=== PATIENT | female | born 1975 | race Caucasian/White ===

== ENCOUNTER 2025-05-28 10:35 | Emergency (ER) | payer OTHER, SELFPAY ==
--- OUTSIDE RECORDS SUMMARY | 2025-05-28 10:37 | XMS_ITS | Clinical Summary ---
Author Organization [facility] Address [address] [place] [id number] Care Team Providers Care Executor Of Estate Name Role Phone Kinjal Justice MD Primary Care Provider Allergies Active Allergy Reactions Criticality Noted Date Comments Penicillins Hives 04/27/2005 Tolerates cefazolin, cefdinir, cephalexin Medications b complex vitamins (VITAMIN B COMPLEX) capsule Take 1 capsule by mouth once daily. Active Magnesium Glycinate 100 mg tab Take by mouth. 0 01/08/20 20 Active levothyroxine (SYNTHROID) 88 mcg tabletIndications: Other specified hypothyroidism TAKE 1 TABLET(88 MCG) BY MOUTH EVERY DAY 30 Tablet 03/16/20 24 Active polyethylene glycol-electrolyte 236-22.74-6.74 -5.86 gram suspensionIndicati ons:Encounter for screening colonoscopy Drink 2 liters (half the bottle) the day before colonoscopy and 2 liters (remaining prep) 6 hours prior to colonoscopy appointment. 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 Resolved Problems Problem Noted Date Diagnosed Date Resolved Date Supervision of other normal 04/08/2009 02/23/2011 Elderly multigravida with an tepartum condition or complication 04/08/2009 02/23/2011 Normal delivery 08/19/2008 02/23/2011 Transient hypertension of pr egnancy, antepartum 08/18/2008 02/23/2011 Supervision of normal first 01/24/2008 02/23/2011 Encounters Date Type Department Care Team Description 03/06/2025 Telephone [facility] [address] [place] [address] Uriah Valera MD Appointment Reminder (Colonoscopy on 03/12/2025 at [facility]) from Last 3 Months Immunizations Immunization Administration Dates Next Due Influenza A (H1N1), Inactivated 09/23/2009 Influenza, IIV3 (Age 6-35 mos) 09/14/2011 Influenza, IIV3 (Age >=3 years) 09/14/2011,08/2609/14/2012 Tdap 09/14/2011 09/14/2021 Family History Medical History Relation Name Comments Good Health Brother 1 Emerson Good Health Brother 2 [place] Good Health Daughter Di 09' Diabetes Father Heart block Father 4V CABG Hypertension Father No Known Problems Maternal Grandfather Diabetes Maternal Grandmother Heart Disease Maternal Grandmother [place] Arthritis Mother alive, ca of ly mph nodes, dm, htn, [place] age 58, thyroid Diabetes Mother Heart Disease Mother [place], Double byp ass Hypertension Mother No Known Problems Paternal Grandfather No Known Problems Paternal Grandmother Good Health Son Jacob 08' Cancer-breast No Family History Relation Name Status Comments Brother 1 [place] Alive X2 Brother 2 [place] Daughter Di 09' Alive Father Alive Maternal Grandfather Maternal Grandmother Mother Alive Paternal Grandfather Paternal Grandmother Son Jacob 08' Alive Social History Tobacco Use Types Packs/Day Years Used Date Smoking Tobacco: Never Smokeless Tobacco: Never Tobacco Cessation:Counseling Given: Yes Comments:No exp at home Alcohol Use Standard Drinks/Week Comments Yes 0 (1 standard drink = 0.6 oz pure alcohol) Alcoholic Drinks/2-3 drinks - couple of times per month when not preg. 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 4th degree tear. Mild PIH at 28 wks. No other complications. Baby born healthy. Wt gain of 45#. 2008 Term F C-Sec tion Livin g Di Sims on Delivery Location:[facility] Last Filed Vital Signs Vital Sign Reading Time Taken Comments Blood Pressure 132/92 11/19/2023 2:35 PM MOBILE LOUNGE DRIVER OR OPERATOR Pulse 63 11/19/2023 2:35 PM MOBILE LOUNGE DRIVER OR OPERATOR Temperature 37 C (98.6 F) 07/22/2022 8:31 AM CDT Respiratory Rate 16 10/22/2020 4:40 PM MOBILE LOUNGE DRIVER OR OPERATOR Oxygen Saturation 98% 11/19/2023 2:35 PM MOBILE LOUNGE DRIVER OR OPERATOR Inhaled Oxygen Concentration - - Weight 83.9 kg (184 lb 14.4 oz) 11/19/2023 2:35 PM MOBILE LOUNGE DRIVER OR OPERATOR Height 167.6 cm (5' 6) 11/19/2023 2:35 PM MOBILE LOUNGE DRIVER OR OPERATOR Body Mass Index 29.84 11/19/2023 2:35 PM MOBILE LOUNGE DRIVER OR OPERATOR Plan of Treatment Scheduled Procedures Name Priority Associated Diagnoses Date/Ti me SURGICAL PROCEDURE (TYPE PROCEDURE DESCRIPTION BELOW) Encounter for screening colonoscopy Health Maintenance Due Date Last Done Comments Hepatitis C screening for ag e 18-79 1992 Hepatitis B series for 19+ ( 1 of 3 - 19+ 3-dose series) 1993 Tetanus booster 09/14/2021 09/14/2011 Depression screening for age 12+ 09/05/2022 09/05/2021, 01/09/2020, 01/08/2020, Additional history exists Mammogram for age 45-75 10/09/2023 10/09/20 22, 09/03/2020, 09/29/2016 Pneumococcal series for age 50+ (1 of 1 - PCV) 2024 Zoster (shingles) series for age 50+ (1 of 2) 2024 COVID-19 vaccine series (2023- season) 2024 BMI (ht and wt on same day) for age 18+ 11/19/2024 11/19/2023, 08/14/2022, 07/22/2022, Additional history exists Colonoscopy through age 75 01/22/202501/22, 01/23/2020, 01/23/2020 Influenza Vaccine (#1) 2025 1, 09/14/2011, 08/26/2009 Lipids for age 45-75 07/22/2027 07/22/2022, 11/05/2016, 03/18/2007, Additional history exists HIV for age 15-65 Completed 04/08/2009, 02/02/2008 Procedures Procedure Name Priority Date/Time Associated Diagnosis Comments XR MAMMO BILAT SCREENING Routine 10/09/2022 10:32 AM MOBILE LOUNGE DRIVER OR OPERATOR Visit for screening mammogram LIPID PANEL W REFLEX MEASURED LDL Routine 07/22/2022 9:16 AM CDT Family history of ASCVD COLONOSCOPY 01/23/2020 9:12 AM MOBILE LOUNGE DRIVER OR OPERATOR ANTI HIV 1/2 Routine 04/08/2009 1:13 PM CDT Supervision of Other Normal (HC) from Last 3 Months or Most Recently Relevant to Health Maintenance Results * XR MAMMO BILAT SCREENING (10/09/2022 10:32 AM MOBILE LOUNGE DRIVER OR OPERATOR) Anatomical Region Laterality Modality BREASTS, Breast Left, Breast Right Bilateral Mammography Impressions 10/09/2022 3:51 PM MOBILE LOUNGE DRIVER OR OPERATOR There is no radiographic evidence for malignancy. Recommend annual mammograms. MAMMOGRAM ASSESSMENT: ACR 1 Negative PATIENTS: You will also receive a letter with your examination results in an easy to read format. If you have questions about your results, please contact your referring provider. Narrative 10/09/2022 3:51 PM MOBILE LOUNGE DRIVER OR OPERATOR For Patients: As a result of the Century Cures Act, medical imaging exams and procedure reports are released immediately into your electronic medical record. You may view this report before your referring provider. If you have questions, please contact your health care provider. XR MAMMO BILAT SCREENING [[id number]] CLINICAL HISTORY: This is an asymptomatic 47 y.o. patient. INDICATION FOR EXAM: Mammogram Screening. TECHNIQUE: CC & MLO views were obtained. This study was evaluated with the assistance of Computer-Aided Detection. COMPARISON FILM: Yes 09/03/20 [employer] FINDINGS: The breasts are heterogeneously dense, which may obscure small masses. There are no dominant masses, suspicious micro calcifications or areas of architectural distortion. us Kinjal Justice MD MAMMO Final Resul t * (ABNORMAL) LIPID PANEL W REFLEX MEASURED LDL (07/22/2022 9:16 AM CDT) CHOLESTEROL,TOTAL 224(H) 100 - 199 mg/dL 07/22/2022 5:07 PM CDT [facility] TRIGLYCERIDES 180(H) <150 mg/dL 07/22/2022 5:07 PM CDT [facility] HDL CHOLESTEROL 49 >40 mg/dL 5:07 PM CDT [facility] NON-HDL CHOLESTEROL 175(H) <145 mg/dl 07/22/2022 5:07 PM CDT [facility] CHOL/HDL RATIO 4.57(H) <4.50 07/22/2022 5:07 PM CDT [facility] LDL CHOLESTEROL 139(H) <=130 mg/dL 07/22/2022 5:07 PM CDT [facility] VLDL CHOLESTEROL 36(H) <=30 mg/dL 07/22/2022 5:07 PM CDT [facility] TRA [facility]ORAT[facility] PROVIDER ORDERED STATUS RANDOM 07/22/2022 5:07 PM CDT [facility] Blood BLOOD SPECIMEN / Unknown Venipuncture / Unknown 07/22/2022 9:16 AM CDT 07/22/2022 9:17 AM CDT us Kinjal Justice MD CHEMISTRY Final Resul t [facility] [address] [place] [address], [place] * COLONOSCOPY (01/23/2020 9:12 AM MOBILE LOUNGE DRIVER OR OPERATOR) 01/23/2020 9:12 AM MOBILE LOUNGE DRIVER OR OPERATOR Narrative Transcriptions Uriah Valera MD - 01/23/2020 9:54 AM CST Patient Name: Arti Barros Procedure Date: 01/23/2020 Gender: Female Date of : 1975 Admit Type: Outpatient Procedure: Colonoscopy Proceduralist: Uriah Valera MD , Charlotte Soto (Nurse) Indications/Pre-Op Diagnosis: Clinically significant diarrhea ofunexplained origin, This is the patient's firstcolonoscopy Medications: Fentanyl 100 micrograms IV, Midazolam 4 mgIV, The level of sedation administered wasmoderate Procedure Description: The patient had risks, benefits and alternatives explained to andgave informed consent. The patient had a stable cardiopulmonary status and judged an adequate candidate for conscious sedation. The [id number] was passed through the anus and advanced tothe terminal ileum. The colonoscopy was performed without difficulty. The patient tolerated the procedure well. The quality of the bowel preparation was good. The ileocecal valve, appendiceal orifice, and rectum were photographed. The terminal ileum, ileocecal valve, appendiceal orifice, and rectum were photographed. Complications: No immediate complications. Estimated Blood Loss & Specimen: Estimated blood loss: none. Specimen collected - Yes and sent to Laboratory Findings: The perianal and digital rectal examinations were normal. Two sessile polyps were found in the cecum. The polyps were 3 mm in size. These polyps were removed with a cold snare. Resection and retrieval were complete. The terminal ileum appeared normal. The exam was otherwise without abnormality on direct and retroflexion views. Biopsies for histology were taken with a cold forceps from the entire colon for evaluation of microscopic colitis. Impressions/Post-Op Diagnosis: - Two 3 mm polyps in the cecum, removed with a cold snare. Resectedand retrieved. - The examined portion of the ileum was normal. - The examination was otherwise normal on direct and retroflexionviews. - Biopsies were taken with a cold forceps from the entire colon for evaluation of microscopic colitis. Recommendation: - Patient has a contact number available for emergencies. The signsand symptoms of potential delayed complications were discussed with the patient. Return to normal activities tomorrow. Written discharge instructions were provided to the patient. - Resume previous diet. - Continue present medications. - Await pathology results. - Repeat colonoscopy is recommended. The colonoscopy date will be determined after pathology results from today's exam become available for review. Moderate Sedation: Moderate (conscious) sedation was administered by the endoscopy nurse and supervised by the endoscopist. The following parameters were monitored: oxygen saturation, heart rate, respiratory rate, blood pressure, adequacy of pulmonary ventilation and reponse to care. [facility] and nursing notes for moderate sedation details. Total physician intraservice time was 22 minutes. Uriah Valera MD 01/23/2020 9:54:35 AM This report has been signed electronically. Note Initiated On: 01/23/2020 9:12 AM Procedure Code(s): --- Professional --- 13130, Colonoscopy, flexible; with removalof tumor(s), polyp(s), or other lesion(s) bysnare technique 99437, 59, Colonoscopy, flexible; withbiopsy, single or multiple Diagnosis Code(s): --- Professional --- D12.0, Benign neoplasm of cecum R19.7, Diarrhea, unspecified CPT copyright 2018 [employer]. All rights reserved. The codes documented in this report are preliminary and upon supervisor network control operators reviewmay be revised to meet current compliance requirements. Scope In: 9:21:01 AM Scope Withdrawal Time 0 hours 11 minutes 0 seconds Scope Out: 9:40:37 AM us Uriah Valera MD PROCEDURE ORD Final Res ult * ANTI HIV 1/2 (04/08/2009 1:13 PM CDT) ANTI HIV 1/2 Non-reacti ve [facility] Blood specimen (specimen) BLOOD SPECIMEN / Unknown 04/08/2009 1:13 PM CDT 04/08/2009 1:12 PM CDT us Alessio Coleman MD SEND OUTS Final Re sult [facility] [place]NAL ZIP [address] [address] from Last 3 Months or Most Recently Relevant to Health Maintenance Insurance [facility] [employer] Advance Directives * Full Code (Latest Code Status on File) Date Activated Date Inactivated Comments 10/22/2020 10:36 AM 10/22/2020 7:15 PM Question Answer Comments Code Status Discussion: Per Existing OrderDiscus sed * Full Code Date Activated Date Inactivated Comments 04/17/2017 12:22 AM 04/18/2017 12:08 PM * Full Code Date Activated Date Inactivated Comments 04/06/2017 10:45 AM 04/06/2017 4:47 PM * Full Code Date Activated Date Inactivated Comments 03/26/2016 11:40 AM 03/26/2016 5:31 PM * Full Code Date Activated Date Inactivated Comments 11/21/2012 10:09 AM 11/21/2012 2:13 PM Care Teams Executor Of Estate Relationship Specialty Start Date End Date Kinjal Justice MD [address] [place] [address] PCP - General Family Practice 07/22/22
--- OUTSIDE RECORDS SUMMARY | 2025-05-28 10:37 | XMS_ITS | Patient Health Record ---
Author Organization [facility] Al Address [address] [place] [address] Care Team Providers Care Sample Book Maker Name Role Phone DANIELLE TEE Unavailable [phone] ANGELAQUINCY Unavailable [phone] Allergies Allergen (clinical drug ingredient) Drug/Non Drug Allergy documented on EMR Reaction Allergy Type Onset Date Status Penicillin Unknown Drug Allergy Active Results Component Value Reference Range Notes THYROID PEROXIDASE ANTIBODIE S (5081) (Not yet reviewed by provider) Interpretation: Performing Lab:TIFFANIE, [facility] [facility] [address], FARR TechnologiesXjesTX[address] Armando Luna Notes/Report: 0 0 0 0 0 0 0 0 0 0 THYROID PEROXIDASE ANTIBODIES 673 <9 IU/mL T4, FREE (866) (Not yet revi ewed by provider) Interpretation: Performing Lab:TIFFANIE, Semadic [address], FARR TechnologiesNmgnCP[address] Armando Luna Notes/Report: 0 0 0 0 0 0 0 0 0 0 T4, FREE 1.1 0.8-1.8 ng/dL TSH (899) (Not yet reviewed by provider) Interpretation: Performing Lab:TIFFANIE, Semadic [address], FARR TechnologiesZobfVG[address] Armando Luna Notes/Report: 0 0 0 0 0 0 0 0 0 0 TSH 3.81 Reference Range > or = 20 Years 0.40-4.50 Ranges First trimester 0.26-2.66 Second trimester 0.55-2.73 Third trimester 0.43-2.91 T3, FREE (90698) (Not yet re viewed by provider) Interpretation: Performing Lab:TIFFANIE, [facility] [address], [facility] RapidsXnvuVE[address] Armando Luna Notes/Report: 0 0 0 0 0 0 0 0 0 0 T3, FREE 3.9 2.3-4.2 pg/mL TESTOSTERONE, FREE (DIALYSIS ) AND TOTAL,MS (38807) (Not yet reviewed by provider) Interpretation: Performing Lab:Kaylin3Micaela, MedFusion-[address] [address], [address]-Nervine AsylumMzybujztfaUM[address] New Martinez MD,PhD Notes/Report: 0 0 0 0 0 0 0 0 0 0 TESTOSTERONE, TOTAL, MS 9 2-45 ng/dL For additional information, please refer to https://education.Kyruus/faq/QRP737 (This link is being provided for informational/educational purposes only.) (Note) This test was developed and its analytical performance characteristics have been determined by [facility]. It has not been cleared or approved by the FDA. This assay has been validated pursuant to the CLIA regulations and is used for clinical purposes. TESTOSTERONE, FREE 1.8 0.1-6.4 pg/mL (Note) This test was developed and its analytical performance characteristics have been determined by [facility]. It has not been cleared or approved by the FDA. This assay has been validated pursuant to the CLIA regulations and is used for clinical purposes. [facility] med fusion [address] [address],[address] [facility] [address] New Martinez MD, PhD NO COLLECTION DATE RECEIVED. WE HAVE USED THE DATE THE SPECIMEN WAS RECEIVED BY THIS LABORATORY THE COLLECTION DATE. IF THIS IS INCORRECT, PLEASE CONTACT CLIENT SERVICES. PHONE NUMBER: [phone] CORTISOL, TOTAL (367) (Not y et reviewed by provider) Interpretation: Performing Lab:TIFFANIE [facility] [facility] [address], [facility] RapidsTxcyOP[address] Armando Luna Notes/Report: 0 0 0 0 0 0 0 0 0 0 CORTISOL, TOTAL 5.4 Reference Range: For 8 a.m.(7-9 a.m.) Specimen: 4.0-22.0 Reference Range: For 4 p.m.(3-5 p.m.) Specimen: 3.0-17.0 * Please interpret above results accordingly * DHEA SULFATE (402) (Not yet reviewed by provider) Interpretation: Performing Lab:TIFFANIE Familio-FARR Technologiese[address] [facility], BizmoreKsowMT[address] Armando Luna Notes/Report: 0 0 0 0 0 0 0 0 0 0 DHEA SULFATE 127 15-205 mcg/dL PROGESTERONE (745) (Not yet reviewed by provider) Interpretation: Performing Lab:TIFFANIE Familio-FARR Technologiese[address] [employer], BizmoreXejxZH[address] Armando Luna Notes/Report: 0 0 0 0 0 0 0 0 0 0 PROGESTERONE 5.7 Reference Ranges Female Follicular Phase < 1.0 Luteal Phase 2.6-21.5 Post menopausal < 0.5 1st Trimester 4.1-34.0 2nd Trimester 24.0-76.0 3rd Trimester 52.0-302.0 ESTRADIOL (4021) (Not yet re viewed by provider) Interpretation: Performing Lab:TIFFANIE Familio-FARR Technologiese[address] [facility], BizmoreEghiID[address] Armando Luna Notes/Report: 0 0 0 0 0 0 0 0 0 0 ESTRADIOL 20 Reference Range Follicular Phase: 19-144 Mid-Cycle: 64-357 Luteal Phase: 56-214 Postmenopausal: < or = 31 Reference range established on post-pubertal patient population. No pre-pubertal reference range established using this assay. For any patients for whom low Estradiol levels are anticipated (e.g. males, pre-pubertal children and hypogonadal/post-menopausal females), the Familio [facility] Estradiol, Ultrasensitive, LCMSMS assay is recommended (order code 49583). Please note: patients being treated with the drug fulvestrant (Faslodex(R)) have demonstrated significant interference in immunoassay methods for estradiol measurement. The cross reactivity could lead to falsely elevated estradiol test results leading to an inappropriate clinical assessment of estrogen status. Fam[facility] order code [id number], Ultrasensitive LC/MS/MS demonstrates negligible cross reactivity with fulvestrant. LIPID PANEL, STANDARD (7600) (Not yet reviewed by provider) Interpretation: Performing Lab:TIFFANIE Familio-FARR Technologiese[address], BizmoreSzbwWL[address] Armando Pride Jeremy Notes/Report: 0 0 0 0 0 0 0 0 0 0 CHOLESTEROL, TOTAL 249 <200 mg/dL HDL CHOLESTEROL 53 > OR = 50 mg/dL TRIGLYCERIDES 214 <150 mg/dL If a non-fasting specimen was collected, consider repeat triglyceride testing on a fasting specimen if clinically indicated. Ze et al. J. of Clin. Lipidol. 2015;9:129-169. LDL-CHOLESTEROL 158 Reference range: <100 Desirable range <100 mg/dL for primary prevention; <70 mg/dL for patients with CHD or diabetic patients with > or = 2 CHD risk factors. LDL-C is now calculated using the Uriah-Perez calculation, which is a validated novel method providing better accuracy than the Friedewald equation in the estimation of LDL-C. Uriah SS et al. JAY. 2013;310(19): 6060-4381 (http://education.Civolution/faq/RYV132) CHOL/HDLC RATIO 4.7 <5.0 (calc) NON HDL CHOLESTEROL 196 <130 mg/dL (calc) For patients with diabetes plus 1 major ASCVD risk factor, treating to a non-HDL-C goal of <100 mg/dL (LDL-C of <70 mg/dL) is considered a therapeutic option. RADHA ALBICANS AB (IGG,IGA ,IGM) (48260) Reviewed date:07/26/2024 04:10:50 PM Interpretation: Performing Lab:EZ, [facility],[address] [facility] HealthcareCA[address] Virginia Brewster MD,PhD,KARIN Notes/Report: FASTING: UNKNOWN FASTING:UNKNOWN C.ALBICANS IGG 0.6 C.ALBICANS IGA 0.3 C.ALBICANS IGM 0.4 REFERENCE RANGE: <1.0 INTERPRETIVE CRITERIA: <1.0 Antibody Not Detected > or = 1.0 Antibody Detected Systemic candidiasis is often characterized by markedly elevated levels of IgG, IgA, and IgM recognizing Radha. However, interpretation of Radha antibody results is complicated by antibody detection in approximately 40% of healthy individuals and up to 70% of patients positive for other fungal antibodies. Further, antibody responses may be blunted in immunocompromised patients at risk for systemic candidiasis. Radha antibody levels should be considered within the context of clinical findings and results from other relevant laboratory tests, such as Radha antigen detection and/or culture. This test was developed and its analytical performance characteristics have been determined by [facility]. It has not been cleared or approved by FDA. This assay has been validated pursuant to the CLIA regulations and is used for clinical purposes. TESTOSTERONE, TOTAL, MS (159 83) Reviewed date:07/24/2024 03:31:58 PM Interpretation: Performing Lab:Z3Micaela, MedFusion-[address]wt[address] [address], [address], UnukvdaqkdCA[address] New Martinez MD,PhD Notes/Report: FASTING:UNKNOWN FASTING: UNKNOWN TESTOSTERONE, TOTAL, MS 10 2-45 ng/dL For additional information, please refer to https://education.Kyruus/faq/TotalTestoste roneLCMSMS (This link is being provided for informational/educational purposes only.) (Note) This test was developed and its analytical performance characteristics have been determined by [facility]. It has not been cleared or approved by the FDA. This assay has been validated pursuant to the CLIA regulations and is used for clinical purposes. MD med fusion [address] [address],[address] [facility] [address] New Martinez MD, PhD PREGNENOLONE, LC/MS (80827) Reviewed date:07/26/2024 04:10:50 PM Interpretation: Performing Lab:KAMALA [facility],[address] [facility] HealthcareCA[address] Virginia Brewster MD,PhD,KARIN Notes/Report: FASTING:UNKNOWN FASTING: UNKNOWN PREGNENOLONE, LC/MS 40 22-237 ng/dL This test was developed and its analytical performance characteristics have been determined by [facility]. It has not been cleared or approved by FDA. This assay has been validated pursuant to the CLIA regulations and is used for clinical purposes. VITAMIN D,25-OH,TOTAL,IA (17 306) Reviewed date:07/21/2024 01:00:36 PM Interpretation: Performing Lab:Lottie MORENO-Nas [address], Nas DavilaAecvPR[address] Armando Luna Notes/Report: FASTING: UNKNOWN FASTING:UNKNOWN VITAMIN D,25-OH,TOTAL,IA 82 30-100 ng/mL Vitamin D Status 25-OH Vitamin D: Deficiency: <20 ng/mL Insufficiency: 20 - 29 ng/mL Optimal: > or = 30 ng/mL For 25-OH Vitamin D testing on patients on D2-supplementation and patients for whom quantitation of D2 and D3 fractions is required, the QuestAssureD(TM) 25-OH VIT D, (D2,D3), LC/MS/MS is recommended: order code [id number] (patients >2yrs). See Note 1 Note 1 For additional information, please refer to http://education.First Aid [employer] Therapy.Studyplaces/faq/WMN596 (This link is being provided for informational/ educational purposes only.) T3, FREE (82504) Reviewed date:07/21/2024 01:00:36 PM Interpretation: Performing Lab:TIFFANIE [facility] [facility] [address], FARR TechnologiesZltyFE[address] Armando Luna Notes/Report: FASTING:UNKNOWN FASTING: UNKNOWN T3, FREE 3.3 2.3-4.2 pg/mL TSH (899) Reviewed date:07/21/2024 01:00:36 PM Interpretation: Performing Lab:TIFFANIE [facility] [facility] [address], FARR TechnologiesQwizZU[address] Armando Luna Notes/Report: FASTING:UNKNOWN FASTING: UNKNOWN TSH 3.33 Reference Range > or = 20 Years 0.40-4.50 Ranges First trimester 0.26-2.66 Second trimester 0.55-2.73 Third trimester 0.43-2.91 CORTISOL, TOTAL (367) Reviewed date:07/21/2024 01:00:14 PM Interpretation: Performing Lab:TIFFANIE [facility] [facility] [address], FARR TechnologiesXahvST[address] Armando Luna Notes/Report: FASTING:UNKNOWN FASTING: UNKNOWN CORTISOL, TOTAL 9.8 Reference Range: For 8 a.m.(7-9 a.m.) Specimen: 4.0-22.0 Reference Range: For 4 p.m.(3-5 p.m.) Specimen: 3.0-17.0 * Please interpret above results accordingly * T4, FREE (866) Reviewed date:07/21/2024 01:00:14 PM Interpretation: Performing Lab:TIFFANIE [facility] [facility] [address], Nas SolorzanoCfzyNH[address] Armando Luna Notes/Report: FASTING:UNKNOWN FASTING: UNKNOWN T4, FREE 0.9 0.8-1.8 ng/dL VITAMIN B12 (927) Reviewed date:07/21/2024 01:00:14 PM Interpretation: Performing Lab:TIFFANIE [facility] R[facility] [address], Nas SolorzanoGxipMD[address] Armando Luna Notes/Report: FASTING:UNKNOWN FASTING: UNKNOWN VITAMIN B12 909 175-2733 pg/mL DHEA SULFATE (402) Reviewed date:07/21/2024 01:00:14 PM Interpretation: Performing Lab:TIFFANIE [facility] R&[facility] [address], Nas SolorzanoXiusEG[address] Armando Luna Notes/Report: FASTING:UNKNOWN FASTING: UNKNOWN DHEA SULFATE 111 15-205 mcg/dL PROGESTERONE (745) Reviewed date:07/21/2024 01:00:36 PM Interpretation: Performing Lab:TIFFANIE [facility] [facility] [address], [place] UgnqCH[address] Armando Luna Notes/Report: FASTING:UNKNOWN FASTING: UNKNOWN PROGESTERONE 2.5 Reference Ranges Female Follicular Phase < 1.0 Luteal Phase 2.6-21.5 Post menopausal < 0.5 1st Trimester 4.1-34.0 2nd Trimester 24.0-76.0 3rd Trimester 52.0-302.0 ESTRADIOL (4021) Reviewed date:07/21/2024 01:00:36 PM Interpretation: Performing Lab:TIFFANIE [facility] [facility] [address], FARR TechnologiesGymlCC[address] Armando Luna Notes/Report: FASTING:UNKNOWN FASTING: UNKNOWN ESTRADIOL <15 Reference Range Follicular Phase: 19-144 Mid-Cycle: 64-357 Luteal Phase: 56-214 Postmenopausal: < or = 31 Reference range established on post-pubertal patient population. No pre-pubertal reference range established using this assay. For any patients for whom low Estradiol levels are anticipated (e.g. males, pre-pubertal children and hypogonadal/post-menopausal females), the Familio [facility] Estradiol, Ultrasensitive, LCMSMS assay is recommended (order code [id number]). Please note: patients being treated with the drug fulvestrant (Faslodex(R)) have demonstrated significant interference in immunoassay methods for estradiol measurement. The cross reactivity could lead to falsely elevated estradiol test results leading to an inappropriate clinical assessment of estrogen status. Familio order code [id number], Ultrasensitive LC/MS/MS demonstrates negligible cross reactivity with fulvestrant. AARTI CASCADE(AARTI,IFA W/RFL AN D REFL 11 AB CASCADE) (71470) Reviewed date:07/23/2024 12:14:54 PM Interpretation: Performing Lab:TIFFANIE Familio-Wood [address], [place] YbzjKB[address] Armando Luna Notes/Report: FASTING:UNKNOWN FASTING: UNKNOWN AARTI SCREEN, IFA NEGATIVE NEGATIVE AARTI IFA is a first line screen for detecting the presence of up to approximately 150 autoantibodies in various autoimmune diseases. A negative AARTI IFA result suggests an AARTI-associated autoimmune disease is not present at this time, and does not reflex further. If there is high clinical suspicion for Sjogren's syndrome, testing for anti-SS-A/Ro antibody should be considered. Anti-Esther-1 antibody should be considered for clinically suspected inflammatory myopathies. AC-0: Negative International Consensus on AARTI Patterns (https://doi.org/10.1515/ccl m-0417-2954) For additional information, please refer to http://education.Marport Deep Sea Technologieso Cortica.com/faq/SKW942 (This link is being provided for informational/ educational purposes only.) THYROID PEROXIDASE ANTIBODIE S (5081) Reviewed date:07/23/2024 12:14:54 PM Interpretation: Performing Lab:TIFFANIE [facility] [facility] [address], [place] BlmsNA[address] Armando Luna Notes/Report: FASTING:UNKNOWN FASTING: UNKNOWN THYROID PEROXIDASE ANTIBODIES 469 <9 IU/mL THYROGLOBULIN PANEL (02473) Reviewed date:07/23/2024 12:14:54 PM Interpretation: Performing Lab:TIFFANIE [facility] [facility] [address], [place] UhpsBQ[address] Armando Luna Notes/Report: FASTING:UNKNOWN FASTING: UNKNOWN THYROGLOBULIN ANTIBODIES 1 < or = 1 IU/mL THYROGLOBULIN 2.5 Reference Range: Intact Thyroid 2.8-40.9 Athyrotic <0.1 Note: Abnormal flagging is based on the reference interval for patients with intact thyroid. This test was performed using the Genny [place] chemiluminescent method. Values obtained from different assay methods cannot be used interchangeably. Thyroglobulin levels, regardless of value, should not be interpreted as absolute evidence of the presence or absence of disease. For additional information, please refer to http://education.SinglePipe Communications/faq/XWN742 (This link is being provided for informational/ educational purposes only.) C-REACTIVE PROTEIN (4420) Reviewed date:07/23/2024 12:14:54 PM Interpretation: Performing Lab:TIFFANIE Familio-FARR Technologiese[address] [employer] Card To Get Approved For, [place]izmoreVxbnGO[address] Armando Luna Notes/Report: FASTING:UNKNOWN FASTING: UNKNOWN C-REACTIVE PROTEIN <3.0 <8.0 mg/L CBC (INCLUDES DIFF/PLT) (639 9) Reviewed date:07/21/2024 01:00:36 PM Interpretation: Performing Lab:TIFFANIE Familio-FARR Technologiese[address] [employer] Card To Get Approved For, BizmoreIpsiYE[address] Armando Luna Notes/Report: FASTING:UNKNOWN FASTING: UNKNOWN WHITE BLOOD CELL COUNT 8.7 3.8-10.8 Thousand/ uL RED BLOOD CELL COUNT 4.45 3.80-5.10 Million/uL HEMOGLOBIN 13.6 11.7-15.5 g/dL HEMATOCRIT 40.5 35.0-45.0 % MCV 91.0 80.0-100.0 fL MCH 30.6 27.0-33.0 pg MCHC 33.6 32.0-36.0 g/dL RDW 12.7 11.0-15.0 % PLATELET COUNT 352 140-400 Thousand/uL MPV 9.8 7.5-12.5 fL ABSOLUTE NEUTROPHILS 4367 7852-8434 cells/uL ABSOLUTE LYMPHOCYTES 3497 850-3900 cells/uL ABSOLUTE MONOCYTES 557 200-950 cells/uL ABSOLUTE EOSINOPHILS 261 15-500 cells/uL ABSOLUTE BASOPHILS 17 0-200 cells/uL NEUTROPHILS 50.2 LYMPHOCYTES 40.2 MONOCYTES 6.4 EOSINOPHILS 3.0 BASOPHILS 0.2 IRON, TIBC AND FERRITIN PANE L (5616) Reviewed date:07/21/2024 01:00:36 PM Interpretation: Performing Lab:CB, [facility]am[facility]-[address]as [address], [place] SolorzanoDvdeTD[address] Armando Luna Notes/Report: FASTING:UNKNOWN FASTING: UNKNOWN IRON, TOTAL 87 45-160 mcg/dL IRON BINDING CAPACITY 361 250-450 mc g/dL (calc) % SATURATION 24 16-45 % (calc) FERRITIN 89 16-232 ng/mL CLIENT EDUCATION TRACKING (N ot yet reviewed by provider) Interpretation: Performing Lab:TIFFANIE, [employer] [facility]-Nas [address], [place] SolorzanoEdgcYO[address] Armando Luna Notes/Report: FASTING: UNKNOWN CLIENT EDUCATION TRACKING The Requisition we received did not include a [employer]am[employer] account number. To prevent delays in testing and processing of your orders please provide the following information with every order submitted: [facility] account number and account name Client address Client phone and fax number NPI number of ordering physician along with the physician name. TESTOSTERONE, FREE (DIALYSIS ) AND TOTAL,MS (75541) (Not yet reviewed by provider) Interpretation: Performing Lab:Z3E, Med[facility]-[address]sm[address] [address], [address]Ad[facility]-Nervine AsylumNtiwgghywxBQ[address] New Martinez MD,PhD Notes/Report: FASTING: UNKNOWN TESTOSTERONE, TOTAL, MS 19 2-45 ng/dL For additional information, please refer to https://education.Kyruus/faq/JZC195 (This link is being provided for informational/educational purposes only.) (Note) This test was developed and its analytical performance characteristics have been determined by [facility]. It has not been cleared or approved by the FDA. This assay has been validated pursuant to the CLIA regulations and is used for clinical purposes. TESTOSTERONE, FREE 3.9 0.1-6.4 pg/mL (Note) This test was developed and its analytical performance characteristics have been determined by [facility]. It has not been cleared or approved by the FDA. This assay has been validated pursuant to the CLIA regulations and is used for clinical purposes. MD[facility] med fusion [address] [facility] [address] [facility] [address] New Martinez MD, PhD NO COLLECTION DATE RECEIVED. WE HAVE USED THE DATE THE SPECIMEN WAS RECEIVED BY THIS LABORATORY THE COLLECTION DATE. IF THIS IS INCORRECT, PLEASE CONTACT CLIENT SERVICES. PHONE NUMBER: [phone] PROGESTERONE (753) (Not yet reviewed by provider) Interpretation: Performing Lab:Lottie MORENO-Nas [address] [facility], Nas SolorzanoRdpkVW[address] Armando Luna Notes/Report: FASTING: UNKNOWN PROGESTERONE 5.0 Reference Ranges Female Follicular Phase < 1.0 Luteal Phase 2.6-21.5 Post menopausal < 0.5 1st Trimester 4.1-34.0 2nd Trimester 24.0-76.0 3rd Trimester 52.0-302.0 ESTRADIOL (8561) (Not yet re viewed by provider) Interpretation: Performing Lab:Lottie MORENO [employer] R[employer]D [address] [employer], Nas SolorzanoTmrlYX[address] Armando Luna Notes/Report: FASTING: UNKNOWN ESTRADIOL 33 Reference Range Follicular Phase: 19-144 Mid-Cycle: 64-357 Luteal Phase: 56-214 Postmenopausal: < or = 31 Reference range established on post-pubertal patient population. No pre-pubertal reference range established using this assay. For any patients for whom low Estradiol levels are anticipated (e.g. males, pre-pubertal children and hypogonadal/post-menopausal females), the [facility]am[facility] Estradiol, Ultrasensitive, LCMSMS assay is recommended (order code 13851). Please note: patients being treated with the drug fulvestrant (Faslodex(R)) have demonstrated significant interference in immunoassay methods for estradiol measurement. The cross reactivity could lead to falsely elevated estradiol test results leading to an inappropriate clinical assessment of estrogen status. [facility] order code [id number], Ultrasensitive LC/MS/MS demonstrates negligible cross reactivity with fulvestrant. HEMOGLOBIN A1c (496) Reviewed date:07/21/2024 01:00:14 PM Interpretation: Performing Lab:TIFFANIE [facility]-[employer] R[facility]D [address] Easiest Credit Card To Get Approved For, Nas RivasHrjqQP[address] Armando Luna Notes/Report: FASTING:UNKNOWN FASTING: UNKNOWN HEMOGLOBIN A1c 5.5 <5.7 % of total Hgb For the purpose of screening for the presence of diabetes: <5.7% Consistent with the absence of diabetes 5.7-6.4% Consistent with increased risk for diabetes (prediabetes) > or =6.5% Consistent with diabetes This assay result is consistent with a decreased risk of diabetes. Currently, no consensus exists regarding use of hemoglobin A1c for diagnosis of diabetes in children. According to [place] Diabetes Association (ADA) guidelines, hemoglobin A1c <7.0% represents optimal control in non- diabetic patients. Different metrics may apply to specific patient populations. Standards of Medical Care in Diabetes(ADA). This test was performed on the Roseanne camille c503 platform. Effective 01/26/24, a change in test platforms from the Roland Pneumatic Tube Operator to the Roseanne camille c503 may have shifted HbA1c results compared to historical results. Based on laboratory validation testing conducted at [facility], the Roseanne platform relative to the Rolnad platform had an average increase in HbA1c value of < or = 0.3%. This difference is within accepted variability established by the National Glycohemoglobin Standardization Program. Note that not all individuals will have had a shift in their results and direct comparisons between historical and current results for testing conducted on different platforms is not recommended. SED RATE BY MODIFIED CHARLES RICARDO (809) Reviewed date:07/21/2024 01:00:36 PM Interpretation: Performing Lab:TIFFANIE Familio-[address], BizmoreJjscXQ[address] Armando Luna Notes/Report: FASTING:UNKNOWN FASTING: UNKNOWN SED RATE BY MODIFIED WESTDAVID 9 < OR = 20 mm/h CELIAC DISEASE COMPREHENSIVE PANEL (28702) Reviewed date:07/23/2024 12:14:54 PM Interpretation: Performing Lab:TIFFANIE Familio-[address], BizmoreZowzKQ[address] Armando Luna Notes/Report: FASTING:UNKNOWN FASTING: UNKNOWN INTERPRETATION No serological evidence of celiac disease. tTG IgA may normalize in individuals with celiac disease who maintain a gluten-free diet. Consider HLA DQ2 and DQ8 testing to rule out celiac disease. Celiac disease is extremely rare in the absence of DQ2 or DQ8. TISSUE TRANSGLUTAMINASE AB, IGA <1.0 Value Interpretation ----- <15.0 Antibody not detected > or = 15.0 Antibody detected IMMUNOGLOBULIN A 138 47-310 mg/dL FSH AND LH (7137) Reviewed date:07/21/2024 01:00:36 PM Interpretation: Performing Lab:TIFFANEI Familio-Wood [address], [place] YsicSK[address] Armando Luna Notes/Report: FASTING:UNKNOWN FASTING: UNKNOWN FSH 103.9 Reference Range Follicular Phase 2.5-10.2 Mid-cycle Peak 3.1-17.7 Luteal Phase 1.5- 9.1 Postmenopausal 23.0-116.3 LH 60.0 Reference Range Follicular Phase 1.9-12.5 Mid-Cycle Peak 8.7-76.3 Luteal Phase 0.5-16.9 Postmenopausal 10.0-54.7 LIPID PANEL, STANDARD (7600) Reviewed date:07/21/2024 01:00:14 PM Interpretation: Performing Lab:TIFFANIE, [facility] R[facility]D Chkd0942 [address], [id number] Armando Luna Notes/Report: FASTING:UNKNOWN FASTING: UNKNOWN CHOLESTEROL, TOTAL 247 <200 mg/dL HDL CHOLESTEROL 52 > OR = 50 mg/dL TRIGLYCERIDES 360 <150 mg/dL If a non-fasting specimen was collected, consider repeat triglyceride testing on a fasting specimen if clinically indicated. Ze et al. J. of Clin. Lipidol. 2015;9:129-169. LDL-CHOLESTEROL 140 Reference range: <100 Desirable range <100 mg/dL for primary prevention; <70 mg/dL for patients with CHD or diabetic patients with > or = 2 CHD risk factors. LDL-C is now calculated using the Uriah-Ana calculation, which is a validated novel method providing better accuracy than the Friedewald equation in the estimation of LDL-C. Uriah SS et al. JAY. 2013;310(19): 1403-2197 (http://education.DirectRM.Studyplaces/faq/TWG020) CHOL/HDLC RATIO 4.8 <5.0 (calc) NON HDL CHOLESTEROL 195 <130 mg/dL (calc) For patients with diabetes plus 1 major ASCVD risk factor, treating to a non-HDL-C goal of <100 mg/dL (LDL-C of <70 mg/dL) is considered a therapeutic option. Reason For Referral No Information Medications Medication SIG (Take, Route, Frequency, Duration) Notes Start Date End Date Status Progesterone 200mg 1 cap orally at bedtime Active Vitamin D3 250 MCG (78941 UT) 1 tablet Orally Once a day Active Magnesium 400 MG as directed Orally Active Multivitamin - 1 tablet Orally Once a day Active Phentermine HCl 37.5 MG 1 capsule Orally Once a day 07/26/2024 Not-Taking [place] Thyroid 45mg Not-T aking Biest/Testosterone 80/20 2mg Biest/ 1mg Test (biest 8mg/ test 4mg/ 1gm) use 0.25gm Apply to thinned skin areas such as fore arms or behind knees daily 08/03/2024 Active Thyroid Pro Not-Taki ng [place] Thyroid 90 MG TAKE 1/2 TABLET BY MOUTH ON AN EMPTY STOMACH.; Duration: 60 Active Problems Problem Type SNOMED Code ICD Code Onset Dates Problem Status W/U Status Risk Notes Problem Stress (85481001) Stress (F43.9) Active confirmed Problem Symptom severity level: perimenopause (419675219) Yadira-menopa use (N95.1) Active confirmed Vital Signs Blood pressure diastolic 78 mm Hg 07/20/2024 Blood pressure systolic 138 mm Hg 07/20/2024 Weight 182 lbs 07/20/2024 Encounters Encounter Location Date Provider Diagnosis Daniel Mitchell [address] [place] [id number] 07/20/2024 DANIELLE TEE Stress F43.9 ; Other fatigue R53.83 ; Pain R52 ; Yadira-menopause N95.1 ; Bloating R14.0 ; Family history of diabetes mellitus Z83.3 and Lipid screening Z13.220 Daniel Mitchell [address] [place] [phone] 07/20/2024 DANIELLE Calderon [facility] [address] [address] 08/03/2024 DANIELLE TEE Stress F43.9 ; Yadira-menopause N95.1 ; Pain R52 ; Other fatigue R53.83 ; Family history of diabetes mellitus Z83.3 ; Bloating R14.0 and Lipid screening Z13.220 Kvng Lee [address] [facility] [address] [place] [address] 12/22/2024 QUINCY MILLER Other fatigue R53.83 ; Yadira-menopause N95.1 ; Stress F43.9 and Lipid screening Z13.220 Daniel Mitchell [address] [place] [phone] 01/04/2025 DANIELLE TEE Other fatigue R53.83 ; Yadira-menopause N95.1 ; Stress F43.9 and Lipid screening Z13.220 [facility] [place] [place] [address] [place] [address] 07/28/2024 DANIELLE TEE [facility] [place] [address] [place] [address] 01/09/2025 DANIELLE TEE Yadira-menopause N95.1 [facility] [place] [place] [address] [place] [address] 07/26/2024 DANIELLE TEE [facility] [place] [address] [place] [facility] [address] 07/26/2024 DANIELLE TEE Weight gain R63.5 [facility] [place] [place] [address] [place] [address] 09/20/2024 DANIELLE RANDAL [facility] [place] [place] [address] [place] [address] 09/20/2024 DANIELLE TEE Yadira-menopause N95.1 [facility] [place] [place] [address] [place] [address] 09/20/[address] [facility] [place] [address] [place] [address] 10/23/2024 DANIELLE TEE Yadira-menopause N95.1 and Other fatigue R53.83 [facility] [place] [place] [address] [place] [address] 01/10/2025 DANIELLE TEE Yadira-menopause N95.1 Assessments Encounter Date Diagnosis (ICD Code) Assessment Notes Treatment Notes Treatment Clinical Notes Section Notes 07/20/2024 Stress (ICD-10 - F43.9) 07/26/2024 Weight gain (ICD-10 - R63.5) 08/03/2024 Stress (ICD-10 - F43.9) ADRENAL: The adrenal system produces hormones that are important for daytime energy, blood pressure, sleep, appetite and many other functions in the body. The adrenals protect the body during stress. In high states or oil heaterman stress hormones can become unbalanced. Cortisol: 9.8 on the lower end DHEA: 111 Recommend starting Adrenaplex supplement once daily 08/03/2024 Yadira-menopaus e (ICD-10 - N95.1) FEMALE HORMONES: Estrogens helps with night sweats, hot flashes and vaginal dryness. Progesterone helps keep you calm, happy and supports memory and sleep. Testosterone helps support libido, muscle mass and vitality. Sex Hormone Binding Globulin (SHBG) is a protein that binds to hormones and carries them to the liver to be detoxified. FEMALE HORMONES: Estrogen level: <15 L Progesterone level: 2.5 L Testosterone level: 10 L Pregnenolone: 40 FSH: 103.9 LH: 60.0 Recommend starting Biest/Testosterone Cream Continue Progesterone 75mg nightly as you have been 09/20/2024 Yadira-menopaus e (ICD-10 - N95.1) 07/20/2024 Other fatigue (ICD-10 - R53.83) 10/23/2024 Yadira-menopaus e (ICD-10 - N95.1) 12/22/2024 Other fatigue (ICD-10 - R53.83) 01/04/2025 Other fatigue (ICD-10 - R53.83) THYROID: The thyroid is responsible for metabolism, heat/cold regulation, gastrointestinal motility, moods and inflammation. T4 and T3 regulate these systems, and TSH is a messenger from the brain to thyroid to increase or decrease thyroid activity. This level may not always accurately reflect thyroid function. T3: 3.9 T4: 1.1 TSH: 3.81 Thyroid Peroxidase : 673 H *Continue [place] Thyroid daily and gluten free diet 01/09/2025 Yadira-menopaus e (ICD-10 - N95.1) 01/10/2025 Yadira-menopaus e (ICD-10 - N95.1) 01/04/2025 Yadira-menopaus e (ICD-10 - N95.1) ESTRADIOL 20 PROGESTERONE 5.7 TESTOSTERONE 1.8 *Increase Biest cream at increased dose. Use 2 pumps of your current bottle until you run out and get your refill 12/22/2024 Yadira-menopaus e (ICD-10 - N95.1) 07/20/2024 Pain (ICD-10 - R52) 10/23/2024 Other fatigue (ICD-10 - R53.83) 08/03/2024 Pain (ICD-10 - R52) Inflammatory: Uric Acid: TNP Sed Rate: 9 CRP: <3.0 An antinuclear antibody test checks to see if you have an autoimmune disorder, a condition where the immune system attacks healthy cells. ARATI SCREEN: Negative Vitamin D3 improves energy, moods, immunity, bone health and overall healing. Vitamin D is essential for mitochondrial function of each of the body's cells. Vitamin D3: 82- looks good 08/03/2024 Other fatigue (ICD-10 - R53.83) FERRITIN is how the body stores iron and low levels can cause fatigue and increased inflammation. Iron, TIBC and Ferritin Panel: Iron, total: 87 Iron, Binding Capacity: 361 %Saturation: 24 Ferritin: 89 Comprehensive Metabolic Panel: TNP Blood Sugar level; Electrolyte level; Kidney function level; Liver function level; CBC: MPV: 9.8 WBC: 8.7 RBC: 4.45 Hemoglobin: 13.6 Hematocrit: 40.5 MCV: 91.0 MCH: 30.6 MCHC: 33.6 RDW: 12.7 Platelet count: 352 THYROID: The thyroid is responsible for metabolism, heat/cold regulation, gastrointestinal motility, moods and inflammation. T4 and T3 regulate these systems, and TSH is a messenger from the brain to thyroid to increase or decrease thyroid activity. This level may not always accurately reflect thyroid function. T3: 3.3 T4: 0.9 TSH: 3.33- on the higher end TPO: 469H Thyroglobulin: 2.5L May take Iodine drops to support T4 ALTAGRACIA'S: Autoimmune thyroid disease called Altagracia thyroiditis happens when there is a genetic component for auto immune disease, a triggering event like stress or hormone changes, and with a GI disturbance that causes a systemic inflammatory response. This can be detected by levels of thyroglobulin and thyroid peroxidase antibodies. Autoimmune paleo protocol may help reduce inflammation relating to autoimmune disease. Improving lifestyle by eating a healthy diet low in added sugars and processed foods (anti-inflammatory) , prioritizing quality sleep, daily exercise/ activity, and stress management may decrease these antibodies. The goal is to keep this level under 100 as it is said to preserve thyroid function. Please look at this website for more information. [email or web address].edu/files/webf m-uploads/documents /outreach/im/villa t_ai_diet_patient.p df Discussed benefits of Vitamin B12 with energy, moods, brain function and nerve health. Vitamin B12 typically comes from animal sources of protein (fish, meat, poultry, eggs), fortified foods (cereals, nut milks). Vitamin B12: 462 L 07/20/2024 Yadira-menopaus e (ICD-10 - N95.1) 12/22/2024 Stress (ICD-10 - F43.9) 01/04/2025 Stress (ICD-10 - F43.9) ADRENAL: The adrenal system produces hormones that are important for daytime energy, blood pressure, sleep, appetite and many other functions in the body. The adrenals protect the body during stress. In high states or oil heaterman stress hormones can become unbalanced. DHEA SULFATE 127 CORTISOL, TOTAL 5.4 01/04/2025 Lipid screening (ICD-10 - Z13.220) Triglycerides level 214 H Cholesterol Total 249 H HDL good cholesterol 53 LDL bad cholesterol; 158 H CHOL/HDLC Ratio; 4.7 NON HDL Cholesterol; 196 H *Focus on good fats, avoid bad fats. Use good oils such as olive oil or avocado oil, avoid vegitable oils and canola oils. 12/22/2024 Lipid screening (ICD-10 - Z13.220) 08/03/2024 Family history of diabetes mellitus (ICD-10 - Z83.3) Hemoglobin A1c: 5.5 07/20/2024 Family history of diabetes mellitus (ICD-10 - Z83.3) 08/03/2024 Bloating (ICD-10 - R14.0) Radha Albicans AB C.ALBICANS IGG; 0.6 C.ALBICANS IGA; 0.3 C.ALBICANS IGM; 0.4 Celiac Disease Comprehensive Panel: Tissue Transglutaminase AB, IGA: <1.0 Immunoglobulin A: 138 *All negative 07/20/2024 Bloating (ICD-10 - R14.0) 07/20/2024 Lipid screening (ICD-10 - Z13.220) 08/03/2024 Lipid screening (ICD-10 - Z13.220) LIPID PANEL: Triglycerides level; 360H Cholesterol Total; 247H HDL good cholesterol; 52 LDL bad cholesterol; 140H CHOL/HDLC Ratio; 4.8 NON HDL Cholesterol; 195H Recommend Starting fish oil supplements, taking 2 caps daily Trying to avoid sugars, carbs 07/20/2024 Other -The performing lab company may be billing your insurance for your lab services. Any statements received from them would need to be discussed with or paid to them. Labs will be drawn at today's appointment. To schedule a follow up appointment in 2 weeks for a lab review with *WELLINGTON Eduardo 5 minutes were spent reviewing the patient's labs and test results, reviewing last treatment plan. 60 minutes were spent with the patient today adjusting plan of care based on symptoms and test results, addressing lifestyle, supplements, and medications as indicated. 10 minutes were spent in charting and documenting the patient's visit following today's appointment., 75 minutes spent in total provider care time. Chart prep by Alissa Vazquez CMA Documentation for today's visit was performed by Brittany Estrada, under the direction of Danielle PARIS 08/03/2024 Other The [employer] lab company may be billing your insurance for your lab services. Any statements received from them would need to be discussed with or paid to them. Make a lab blood draw appointment in 2 months with a lab review 2 weeks after with Danielle PARIS Permission verbally granted by patient for Phone/TeleHealth visit today Start: 8:53pm Stop: 9:20 Remaining labs have been reviewed with the patient and are within acceptable/ optimal levels 10 minutes were spent reviewing the patient's labs and test results, reviewing last treatment plan. 27 minutes were spent with the patient today adjusting plan of care based on symptoms and test results, addressing lifestyle, supplements, and medications as indicated. 10 minutes were spent in charting and documenting the patient's visit following today's appointment., 37 minutes spent in total provider care time. Chart prep by Alissa Vazquez CMA Documentation for today's visit was performed by Brittany Estrada, under the direction of Danielle PARIS 12/22/2024 Other Today labs were drawn by Rose Cabral. Patient's skin was cleansed with an alcohol pad prior to venipuncture. Venipuncture site was properly dressed. Patient will return when results are received to review and discuss treatment plan accordingly 01/04/2025 Other *Please see lab results in your patient portal. -The performing lab company may be billing your insurance for your lab services. Any statements received from them would need to be discussed with or paid to them. Make a lab blood draw appointment in 3 months with a lab review 2 weeks after with WELLINGTON Eduardo. Remaining labs have been reviewed with the patient and are within acceptable/ optimal levels Permission verbally granted by patient for Phone/TeleHealth visit today Start: 8:30 Stop:8:50 10minutes were spent reviewing the patient's labs and test results, reviewing last treatment plan. 20 minutes were spent with the patient today adjusting plan of care based on symptoms and test results, addressing lifestyle, supplements, and medications as indicated. 10 minutes were spent in charting and documenting the patient's visit following today's appointment., 40 minutes spent in total provider care time. Chart prepped by Karen Calles RN Documentation for today's visit was performed by Alissa Vazquez CMA under the direction of WELLINGTON Eduardo, visit following today's appointment. Plan Of Treatment Pending Test Test Name Order Date COMPREHENSIVE METABOLIC PANEL (59822) URIC ACID (905) 07/20/2024 ESTRADIOL (4021) 05/22/2025 PROGESTERONE (745) 05/22/2025 TESTOSTERONE, FREE (DIALYSIS) AND TOTAL, MS (89574) 05/22/2025 CLIENT EDUCATION TRACKING 05/22/2025 LIPID PANEL, STANDARD (7600) 12/22/2024 THYROID PEROXIDASE ANTIBODIES (5081) ESTRADIOL (4021) 12/22/2024 PROGESTERONE (745) 12/22/2024 DHEA SULFATE (402) 12/22/2024 T4, FREE (866) 12/22/2024 CORTISOL, TOTAL (367) 12/22/2024 TSH (899) 12/22/2024 T3, FREE (45606) 12/22/2024 TESTOSTERONE, FREE (DIALYSIS) AND TOTAL, MS (73835) 12/22/2024 Future Test Test Name Order Date ESTRADIOL (4021) 02/15/2025 PROGESTERONE (745) 02/15/2025 TESTOSTERONE, TOTAL, MS (19075) 02/16/20 25 Insurance Providers Payer Name Payer Address Payer Phone Subscriber Number Group Number Insured Name Patient Relationship to Insured Coverage Start Date Coverage End Date R [address] [address] [place] [address] [id number] Arti Barros Self - patient is the insured Medical (General) History Medical History History ICD Code chronic bladder infections Kidney Infections vitamin D deficiency Surgical History Surgery Date(Month/Year) bunionectomy hysterectomy right ankle 10/2021
[2025-05-28 10:44] VITALS: BP 147/97; PULSE 83; RESP 20; TEMP 35.9; O2SAT 95; BMI 29.1
--- NOTE | 2025-05-28 12:24 | ED.GENADULT ---
HPI - General Adult General Stated complaint: Head trauma/laceration Time Seen by Provider: 05/28/25 12:17 Source: patient Mode of arrival: ambulatory Limitations: no limitations History of Present Illness HPI narrative: 50-year-old female presenting today with a laceration to the scalp. Patient was moving things around the garage and the blade of a weed smoking tobacco packer hand fell on top of her head. Denies loss of consciousness. Headache. No blurry vision. No other concerns. Related Data Home Medications ?Medication ?Instructions ?Recorded ?Confirmed estradiol 0.01% (0.1 mg/gram) 1 g vaginal 04/24/24 04/24/24 vaginal cream progesterone micronized 100 mg 100 mg PO QAM 04/24/24 04/24/24 capsule HRT 05/28/25 thyroid (pork) PO 05/28/25 Allergies Allergy/AdvReac Type Severity Reaction Status Date / Time Penicillins Allergy Mild hives Verified 05/28/25 10:47 Review of Systems Status of ROS: Reports: 6 or more systems reviewed and unremarkable except as noted in History and below PFSH [facility] Social History Smoking Status: Never smoker Exam Narrative: Exam Narrative: Well-nourished well-developed patient in no acute distress. Alert and oriented. Answers questions appropriately. Mood and affect are appropriate. Thoughts are goal oriented and rational. No tangential or magical thinking noted. Patient speaks in full sentences without needing to catch her breath. HEENT: Normocephalic. Pupils are equally round reactive to light. Extraocular muscles are intact. Conjunctivae are moist without any icterus noted. Moist mucous membranes. Patient has approximately a 5 mm laceration on the top of the head. Bleeding is controlled. Const: Vital Signs, click to edit/add: Vital Signs - 24 hr 05/28/25 10:44 Temperature 96.6 F L Pulse Rate [Right] 83 Respiratory Rate 20 Blood Pressure [Ri ght Upper Arm] 147/97 H Pulse Oximetry 95 Course Course ED Course: Wound was cleaned and explored. Area anesthetized with lidocaine with epinephrine. Three sutures placed with 3-0 Ethilon. Vital Signs Vital signs: Initial Vital Signs Temperature 96.6 F L 05/28/25 10:44 Temperature Source Temporal Artery Scan 05/28/25 10:44 Pulse Rate 83 05/28/25 10:44 Respiratory Rate 20 05/28/25 10:44 Blood Pressure 147/97 H 05/28/25 10:44 Blood Pressure Mean 113 H 05/28/25 10:44 Blood Pressure Position Sitting 05/28/25 10:44 Pulse Oximetry 95 05/28/25 10:44 Vital Signs Temperature 96.6 F L 05/28/25 10:44 Pulse Rate 83 05/28/25 10:44 Respiratory Rate 20 05/28/25 10:44 Blood Pressure 147/97 H 05/28/25 10:44 Pulse Oximetry 95 05/28/25 10:44 Temperature 96.6 F L 05/28/25 10:44 Pulse Rate 83 05/28/25 10:44 Respiratory Rate 20 05/28/25 10:44 Blood Pressure 147/97 H 05/28/25 10:44 Pulse Oximetry 95 05/28/25 10:44 Medical Decision Making MDM Narrative Medical decision making narrative: 50-year-old female status post laceration to the scalp, sutured per above. Discharge Plan Discharge Clinical Impression: Laceration of scalp Patient Disposition: Home, Self-Care Condition: Improved Additional Instructions: Keep wound clean and dry. Do not soak such as taking baths, swimming. Okay to shower like you normally would. Follow-up in approximately 1 week for suture removal with your primary care provider. Watch for signs and symptoms of infection including increasing redness of the area, purulent drainage, or fever. If this occurs follow-up right away with your doctor or return to the ER. Prescriptions: No Action estradiol 0.01 % (0.1 mg/gram) cream 1 g vaginal progesterone micronized 100 mg capsule 100 mg PO QAM Rx Instructions: off 7 days; repeat cycle thyroid (pork) [[place] Thyroid] PO HRT Follow Up/Referrals: Provider,Not a Local [Primary Care Provider, Family Practice] Stand Alone Forms: [facility] Info Instructions
[2025-05-28] MEDS: TETANUS/DIPHTH/PERTUSSIS 0.5 ML SYRINGE IM (12:48)
[2025-05-28] MEDS: LIDOCAINE 1%-EPI 1:100,000 20 ML INFILTRATI (12:50)
== END 2025-05-28 12:53 | disposition home or self-care (01) ==
PROVIDERS: Emergency Provider Family Medicine
DX: S01.01XA Laceration without foreign body of scalp, initial encounter (principal); W26.9XXA Contact with unspecified sharp object(s), initial encounter; Z23 Encounter for immunization
CPT/HCPCS: 12001; 90471; 90715; 99283; 99284